=== PATIENT | female | born 1990 | race Caucasian/White ===

== ENCOUNTER 2020-05-27 12:29 | Emergency (ER) | payer OTHER, SELFPAY ==
[~2020-05-27] VITALS: Ht 160 cm; Wt 81.6 kg
[2020-05-27 12:34] VITALS: Ht 160 cm; Wt 81.6 kg
[2020-05-27 16:08] VITALS: BP 101/59
== END 2020-05-27 16:08 | disposition home or self-care (01) ==
LOC: ED 12:29
DX: U07.1 COVID-19 (principal)
CPT/HCPCS: U0003